=== PATIENT | female | born 1960 | race Caucasian/White ===

== ENCOUNTER 2022-11-13 09:15 | Outpatient (CLI) | payer OTHER, SELFPAY ==
--- NOTE | 2022-11-13 09:22 | MM_ITS ---
WS: [id number] BILATERAL SCREENING DIGITAL TOMOSYNTHESIS MAMMOGRAM WITH CAD HISTORY: Z00.00 - Encounter for general adult medical examination ... COMPARISON: 08/04/2016, 05/29/2020, 04/09/2018 and 08/15/2021 Bilateral CC and MLO views with tomosynthesis and synthetic mammography submitted. Computer aided det ection analyzed. Breast composition: There are scattered areas of fibroglandular density. No suspicious masses, microc alcifications or architectural distortion. Multiple bilateral breast asymmetries and masses. These hilton ve been present since 2019. IMPRESSION: MM/[place] [id number] BI-RADS: 2-Benign FOLLOW UP: 1 Year Follow-up
== END 2022-11-13 09:16 | disposition home or self-care (01) ==
PROVIDERS: PCP Family Medicine; Visit Provider Family Medicine
DX: Z12.31 Encounter for screening mammogram for malignant neoplasm of breast (principal)
CPT/HCPCS: 77063; 77067

== ENCOUNTER → 2023-02-23 11:13 | Outpatient (BNVA) | payer OTHER, SELFPAY | PROVIDERS: PCP Family Medicine; Visit Provider Family Medicine | DX: I10 Essential (primary) hypertension (principal); E78.5 Hyperlipidemia, unspecified; E03.8 Other specified hypothyroidism; E10.9 Type 1 diabetes mellitus without complications; R53.83 Other fatigue | CPT/HCPCS: 80053; 80061; 83036; 84443; 85025 ==

== ENCOUNTER 2023-02-24 10:52 | Outpatient (CLI) | payer OTHER, SELFPAY ==
--- NOTE | 2023-02-24 10:58 | XR_ITS ---
WS: [id number] XR shoulder RT min 2V* [id number] REASON FOR EXAM: shoulder pain FINDINGS: No fracture or focal bone lesion. Mild to moderate narrowing of the acromioclavicular joint with mild subchondral sclerosis and osteoph ytosis. The glenohumeral joint is intact and does not appear to be significantly narrowed. Mild to moderate subchondral sclerosis and cystic change in the biceps tuberosity. No soft tissue abnormality. IMPRESSION: Mild to moderate osteoarthritis in the acromioclavicular joint. Mild to moderate rotator cuff tendon arthropathy.
== END 2023-02-24 10:53 | disposition home or self-care (01) ==
LOC: RAD 10:52
PROVIDERS: PCP Family Medicine; Visit Provider Family Medicine
DX: M19.011 Primary osteoarthritis, right shoulder (principal); M12.811 Other specific arthropathies, not elsewhere classified, right shoulder
CPT/HCPCS: 73030

== ENCOUNTER 2023-04-01 06:25 | Day surgery (SDC) | payer OTHER, SELFPAY ==
[2023-04-01 06:37] VITALS: BP 136/89; PULSE 111; RESP 16; TEMP 36.7; O2SAT 96; BMI 30.2
[2023-04-01] MEDS: sodium chloride 0.9% 1,000 ML 30 ML IV (06:47)
--- NOTE | 2023-04-01 07:12 | P.ANESASSM_ITS ---
Pre-Anesthetic Assessment Height/Weight: Height 1.65 m Weight 82.554 kg Temp Pulse Resp BP Pulse Ox O2 Del Method 98.0 F 111 H 16 136/89 96 Room Air 04/01/23 06:37 04/01/23 06:37 04/01/23 06:37 04/01/23 06:37 04/01/23 06:37 04/01/23 06:37 Preop Diagnosis: screening, GERD Operation Date: 04/01/23 07:30 Proposed Procedures p 26888 gd 08266 colon G0121 screen colon A risk Z12.11, K21.9(Not Applicable) - Flynn Ann DO s Colonoscopy(Not Applicable) - Flynn Ann DO Was Beta Lee taken within 24 hours: N/A Was Clonidine taken within 24 hours: N/A Last intake: Intake Last Liquid Date 03/31/23 Last Liquid Time 22:00 Last Solid Date 03/31/23 Last Solid Time 23:00 Social No alcohol and No tobacco Exam alert and oriented x 3 Airway Submandibular: within normal limits Cervical ROM: within normal limits Mallampati: Class II Dentition: full History/ROS No significant history except as noted Pulmonary None reported CV/HEM Hypertension None reported Hepatic None reported GI Gastroesophageal Reflux Disease Metabolic Hyperlipidemia [facility] Osteoarthritis/DJD (arthritis in shoulder) Neuropsych None reported Anesthetic Plan ASA status: 2 Anesthesia: MAC Risk of > 500 ml blood loss (7ml/kg in children): No Medications/Allergies Home Medications Medication Instructions Recorded Confirmed Last Taken Type cholecalciferol (vitamin D3) 50 50 mcg PO DAILY 08/14/22 04/01/23 03/31/23 History mcg (2,000 unit) capsule fluticasone propionate 50 2 spray intranasal DAILY #16 grams 08/14/22 04/01/23 03/31/23 Rx mcg/actuation nasal spray,suspension (Flonase Allergy Relief) magnesium oxide 400 mg PO DAILY 08/14/22 04/01/23 03/31/23 History irbesartan 150 1 tab PO DAILY #90 tabs 02/23/23 04/01/23 03/31/23 Rx mg-hydrochlorothiazide 12.5 mg tablet omeprazole 20 mg capsule,delayed 20 mg PO DAILY #90 caps 02/23/23 04/01/23 03/31/23 Rx release rosuvastatin 5 mg tablet 5 mg PO DAILY #90 tabs 02/23/23 04/01/23 03/31/23 Rx pantoprazole 40 mg tablet,delayed 40 mg PO BID 6 weeks #84 tabs 03/05/23 04/01/23 Unknown Rx release (Protonix) Allergies Allergy/AdvReac Type Severity Reaction Status Date / Time Cephalosporins Allergy hives Verified 04/01/23 06:35 penicillin V Allergy hives Verified 04/01/23 06:35 Current Medications Generic Name Dose Route Start Last Admin Trade Name Freq PRN Reason Stop Dose Admin Sodium Chloride 1,000 mls @ 30 mls/hr 04/01/23 06:45 04/01/23 06:47 Sodium Chloride 0.9% IV 04/02/23 06:44 30 mls/hr .Q24H YONNY Administration PFSH Anesthesia Medical History Prediabetes Hyperlipidemia Hypertension Surgical History History of appendectomy History of cholecystectomy Family History Father Hypertension Mother Hypertension Grandfather Stroke Data Anesthesia Cardiac Studies: No Data to Display
--- NOTE | 2023-04-01 07:31 | W.PM.OPSUD ---
Surgery/Procedure H&P Update DATE OF PROCEDURE: April 01, 2023 DATE H&P PERFORMED: 03/05/23 H&P UPDATE INFORMATION: I have reviewed H&P completed within last 30 days, I have examined patient prior to procedure and No changes to prior documentation PREOP DIAGNOSIS: screening, GERD PLANNED PROCEDURE: Operation Date: 04/01/23 07:30 Proposed Procedures p 86631 gd 83079 colon G0121 screen colon A risk Z12.11, K21.9(Not Applicable) - DO meseret Saleh Colonoscopy(Not Applicable) - Flynn Ann DO
[2023-04-01 07:56] VITALS: BP 158/97; PULSE 85; RESP 14; TEMP 36.6; O2SAT 93
[2023-04-01 08:01] VITALS: BP 148/93; PULSE 82; RESP 18; O2SAT 94
[2023-04-01 08:11] VITALS: BP 162/88; PULSE 77; RESP 18; O2SAT 100
--- NOTE | 2023-04-01 14:47 | ANE.PACU2 ---
Inpatient post-anesthesia follow up: Airway intact: Yes Vital signs: Temperature 97.9 F Pulse Rate 77 Respiratory Rate 18 Blood Pressure 162/88 Pulse Oximetry 100 Oxygen Delivery Me thod Room Air Oxygen Flow Rate Fraction of Inspir ed Oxygen Hydration adequate: Yes Nausea and vomiting: No Pain level: 2 Mental status: Baseline
== END 2023-04-01 08:39 | disposition home or self-care (01) ==
PROVIDERS: PCP Family Medicine; Visit Provider Surgery
PROC: 0DJ08ZZ Inspection of Upper Intestinal Tract, Via Natural or Artificial Opening Endoscopic (ICD-10-PCS; CPT 43235; principal; 2023-04-01 07:30)
PROC: 0DJD8ZZ Inspection of Lower Intestinal Tract, Via Natural or Artificial Opening Endoscopic (ICD-10-PCS; CPT 45378; 2023-04-01 07:30)
DX: Z12.11 Encounter for screening for malignant neoplasm of colon (principal); K21.9 Gastro-esophageal reflux disease without esophagitis; K44.9 Diaphragmatic hernia without obstruction or gangrene; I10 Essential (primary) hypertension; E78.5 Hyperlipidemia, unspecified
CPT/HCPCS: 43239; 45378; 88305; 88342; G0121; J2704; J7030

== ENCOUNTER 2023-05-19 16:03 | Outpatient (RCR) | payer OTHER, SELFPAY | END 2023-06-16 23:59 | disposition home or self-care (01) | LOC: SPT 16:03 | PROVIDERS: PCP Family Medicine; Visit Provider Family Medicine | DX: M25.511 Pain in right shoulder (principal) | CPT/HCPCS: 97110; 97161 ==

== ENCOUNTER → 2023-07-24 11:27 | Outpatient (BNVA) | payer OTHER, SELFPAY | PROVIDERS: PCP Family Medicine; Visit Provider Family Medicine | DX: I10 Essential (primary) hypertension (principal); E78.5 Hyperlipidemia, unspecified; R73.03 Prediabetes | CPT/HCPCS: 80053; 80061; 83036 ==

== ENCOUNTER 2023-11-18 08:50 | Outpatient (CLI) | payer OTHER, SELFPAY ==
--- NOTE | 2023-11-18 08:53 | MM_ITS ---
WS: [id number] BILATERAL SCREENING DIGITAL TOMOSYNTHESIS MAMMOGRAM WITH CAD HISTORY: SCREENING COMPARISON: 11/13/2022, 08/15/2021, 05/29/2020, 03/12/2017 Bilateral CC and MLO views with tomosynthesis and synthetic mammography submitted. Computer aided det ection analyzed. Breast composition: There are scattered areas of fibroglandular density. No suspicious masses, microc alcifications or architectural distortion. Several masses are identified in the LEFT breast which hav e been present since 2018. The largest in the lateral inferior LEFT breast measures 7 x 10 x 8 mm and is of increased density with irregular margins. No increase in size. No new grouping of calcificatio ns or new suspicious mass. MM/MM scr tomosynthesis [id number] IMPRESSION: BI-RADS: 2 - Benign. FOLLOW UP: 1 Year Follow-up
== END 2023-11-18 08:51 | disposition home or self-care (01) ==
LOC: RAD 08:51
PROVIDERS: PCP Family Medicine; Visit Provider Family Medicine
DX: Z12.31 Encounter for screening mammogram for malignant neoplasm of breast (principal)
CPT/HCPCS: 77063; 77067

== ENCOUNTER → 2024-01-27 10:37 | Outpatient (BNVA) | payer OTHER, SELFPAY | PROVIDERS: PCP Family Medicine; Visit Provider Family Medicine | DX: I10 Essential (primary) hypertension (principal); R73.03 Prediabetes | CPT/HCPCS: 80053; 80061; 83036 ==

== ENCOUNTER → 2024-07-27 10:38 | Outpatient (BNVA) | payer MEDICARE, OTHER, SELFPAY | PROVIDERS: PCP Family Medicine; Visit Provider Family Medicine | DX: I10 Essential (primary) hypertension (principal); E78.5 Hyperlipidemia, unspecified | CPT/HCPCS: 80053; 80061 ==

== ENCOUNTER → 2024-09-07 07:56 | Outpatient (BNVA) | payer MEDICARE, OTHER, SELFPAY | PROVIDERS: PCP Family Medicine; Visit Provider Nurse Practitioner Family | DX: L71.8 Other rosacea (principal); L57.8 Other skin changes due to chronic exposure to nonionizing radiation; D22.5 Melanocytic nevi of trunk; L81.4 Other melanin hyperpigmentation; L82.0 Inflamed seborrheic keratosis; L29.89 Other pruritus; Z78.9 Other specified health status; R20.8 Other disturbances of skin sensation | CPT/HCPCS: 17110; 99204 ==

== ENCOUNTER 2024-11-28 08:42 | Outpatient (CLI) | payer MEDICARE, OTHER, SELFPAY ==
--- NOTE | 2024-11-28 08:45 | MM_ITS ---
WS: [id number] BILATERAL SCREENING DIGITAL TOMOSYNTHESIS MAMMOGRAM WITH CAD HISTORY: SCREENING COMPARISON: 11/18/2023, 11/13/2022 Bilateral CC and MLO views with tomosynthesis and synthetic mammography submitted. Computer aided detection analyzed. Breast composition: There are scattered areas of fibroglandular density. No suspicious masses, microcalcifications or architectural distortion. Long-term stable asymmetry LEFT breast at 3:00 at a middle depth. There are no new masses or calcifications. No distortion. MM/MM scr tomosynthesis [id number] IMPRESSION: BI-RADS: 2 - Benign. FOLLOW UP: 1 Year Follow-up
== END 2024-11-28 08:43 | disposition home or self-care (01) ==
LOC: RAD 08:42
PROVIDERS: PCP Family Medicine; Visit Provider Nurse Practitioner Women's Health
DX: Z12.31 Encounter for screening mammogram for malignant neoplasm of breast (principal); R92.323 Mammographic fibroglandular density, bilateral breasts; N64.89 Other specified disorders of breast
CPT/HCPCS: 77063; 77067

== ENCOUNTER → 2024-12-15 08:42 | Outpatient (BNVA) | payer MEDICARE, OTHER, SELFPAY | PROVIDERS: PCP Family Medicine; Visit Provider Nurse Practitioner Family | DX: L71.8 Other rosacea (principal); L57.8 Other skin changes due to chronic exposure to nonionizing radiation; L81.4 Other melanin hyperpigmentation | CPT/HCPCS: 99214 ==

== ENCOUNTER → 2025-01-25 09:19 | Outpatient (BNVA) | payer MEDICARE, OTHER, SELFPAY | PROVIDERS: PCP Family Medicine; Visit Provider Family Medicine | DX: E78.5 Hyperlipidemia, unspecified (principal); R73.03 Prediabetes; I10 Essential (primary) hypertension | CPT/HCPCS: 80053; 80061; 83036 ==